=== PATIENT | male | born 1990 | race African-American/Black ===

== ENCOUNTER 2016-10-20 08:30 | Emergency (ER) | payer SELFPAY ==
[2016-10-20 08:35] VITALS: O2SAT 95
--- NOTE | 2016-10-20 09:00 | EDPHY ---
H & P Stated Complaint: [place] w/ N/V Time Seen by Provider: 10/20/16 09:00 HPI/ROS: CHIEF COMPLAINT: Frontal headache HISTORY OF PRESENT ILLNESS: The patient presents to the ED with a 1 day history of a frontal headache. The patient denies any focal numbness or weakness. He did have an episode of vomiting x1 this morning. The patient denies fever, neck pain, fall, trauma or additional complaints. The patient has no significant past medical history. The patient does complain of a bifrontal headache primarily over his synagogue area. REVIEW OF SYSTEMS: A comprehensive 10 point review of systems is otherwise negative aside from elements mentioned in the history of present illness. Source: Patient - Personal History Current Tetanus/Diphtheria Vaccine: Yes Current Tetanus Diphtheria and Acellular Pertussis (TDAP): Yes - Medical/Surgical History Hx Asthma: No Hx Chronic Respiratory Disease: No Hx Diabetes: No Hx Cardiac Disease: No Hx Renal Disease: No Hx Cirrhosis: No Hx Alcoholism: No Hx HIV/AIDS: No Hx Splenectomy or Spleen Trauma: No Other PMH: night tremors - Social History Smoking Status: Current every day smoker - Physical Exam Exam: General Appearance: Alert, no distress Head: Normocephalic, atraumatic, mild tenderness to palpation over the temporal areas bilaterally Eyes: Pupils equal and round no pallor or injection ENT, Mouth: Mucous membranes moist Respiratory: There are no retractions, lungs are clear to auscultation Cardiovascular: Regular rate and rhythm Gastrointestinal: Abdomen is soft and nontender, no masses, bowel sounds normal Neurological: A&O, normal motor function, normal sensory exam, normal cranial nerves Skin: Warm and dry, no rashes Musculoskeletal: Neck is supple nontender Extremities: symmetrical, full range of motion Constitutional: Initial Vital Signs Temperature (C) 36.8 C 10/20/16 08:33 Heart Rate 79 10/20/16 08:33 Respiratory Rate 14 10/20/16 08:33 Blood Pressure 130/72 H 10/20/16 08:33 O2 Sat (%) 95 10/20/16 08:33 O2 Delivery Mode Room Air Allergies/Adverse Reactions: vancomycin Allergy (Verified 10/20/16 08:35) Home Medications: Medication Instructions Recorded Ondansetron Odt [Zofran Odt] 4 mg PO Q4PRN PRN #20 tab 10/20/16 Medical Decision Making ED Course/Re-evaluation: The patient is well-appearing without clinical evidence of meningitis. The patient has a normal neurologic examination stable vital signs. The patient presents to the ED with a likely muscle tension headache. The patient received 4 mg of IV Zofran and 30 mg of IV Toradol. I re-evaluated the patient at 9:30 a.m.. The patient continues to be neurologically intact. He will be provided a prescription for Zofran and advised to use ibuprofen as needed for pain. The patient is advised to follow up with his primary care provider. Differential Diagnosis: Differential diagnosis considered includes tension headache, migraine headache, meningitis - Data Points Medications Given: Discontinued Medications Ketorolac Tromethamine (Toradol) 30 mg IM EDNOW ONE Stop: 10/20/16 09:07 Last Admin: 10/20/16 09:22 Dose: 30 mg Ondansetron HCl (Zofran Odt) 4 mg PO EDNOW ONE Stop: 10/20/16 09:06 Last Admin: 10/20/16 09:22 Dose: 4 mg Departure - Departure Disposition: Home, Routine, Self-Care Clinical Impression: Tension headache Condition: Good Instructions: Tension Headache (ED) Additional Instructions: 1. Zofran as needed for nausea. 2. Please take ibuprofen 600 mg 3 times a day for your headache. 3. Please follow up with your primary care provider as needed. 4. Please return to the ED for markedly worsening symptoms or other concerns. Referrals: HAL[facility] PITT [Other] - As per Instructions Stand Alone Forms: Work Excuse, Narcotic Guidelines, [facility] Prescriptions: Ondansetron Odt [Zofran Odt] 4 mg PO Q4PRN PRN #20 tab PRN Reason: For Nausea
[2016-10-20] MEDS ORDERED: ONDANSETRON DISINTEGRATING 4 MG TAB PO ONE (09:05)
[2016-10-20] MEDS ORDERED: KETOROLAC 30 MG/1 ML SDV IM ONE (09:06)
[2016-10-20 09:55] VITALS: BP 148/75; PULSE 76; RESP 18; TEMP 98.4
== END 2016-10-20 09:55 | disposition home or self-care (01) ==
DX: G44.209 Tension-type headache, unspecified, not intractable (principal); F17.200 Nicotine dependence, unspecified, uncomplicated
CPT/HCPCS: J1885